=== PATIENT | male | born 1990 | race Caucasian/White ===

== ENCOUNTER 2018-09-19 12:42 | Emergency (ER) | payer OTHER, SELFPAY ==
[2018-09-19] MEDS ORDERED: Adacel (T-DAP) 0.5 ML VIAL ONE (13:03)
[2018-09-19] MEDS ORDERED: Ketorolac Tromethamine 30 MG/ML VIAL ONE (14:29)
== END 2018-09-19 14:34 | disposition home or self-care (01) ==
LOC: ERS 12:42
DX: S50.02XA Contusion of left elbow, initial encounter (principal); S10.91XA Abrasion of unspecified part of neck, initial encounter; F17.210 Nicotine dependence, cigarettes, uncomplicated; W11.XXXA Fall on and from ladder, initial encounter
CPT/HCPCS: 90471; 90715; 96372; J1885